=== PATIENT | male | born 1970 | race Caucasian/White ===

== ENCOUNTER 2018-03-18 13:48 | Inpatient (IN) | payer MEDICARE, MEDICAID ==
[~2018-03-18] VITALS: Ht 147.3 cm; Wt 50.8 kg
[2018-03-18] MEDS ORDERED: PHOSPHOROUS 25250 MG PO (15:08)
[2018-03-18] MEDS ORDERED: METOPROLOL SUCC25 M1 PO (15:08)
[2018-03-18] MEDS ORDERED: NOVOLOG 100U100 U/ML SQ (15:10)
[2018-03-18] MEDS ORDERED: CELLCEPT500 MG PO (15:11)
[2018-03-18] MEDS ORDERED: CYCLOSPORINE25 MG (15:11)
[2018-03-18] MEDS ORDERED: VITAMIN D5000 I1 PO (15:12)
[2018-03-18] MEDS ORDERED: PRILOSEC 20MG20 MG PO (15:12)
[2018-03-18] MEDS ORDERED: PRINIVIL20 M1 PO (15:32)
[2018-03-18] MEDS ORDERED: RESTORIL15 MG PO (15:32)
[2018-03-18] MEDS ORDERED: RYTARY1 CE2 PO (15:33)
[2018-03-18] MEDS ORDERED: SINEMET CR 25 M1 TER PO (15:34)
[2018-03-18] MEDS ORDERED: REQUIP 1MG T1 MG/TAB (15:35)
[2018-03-18] MEDS ORDERED: ZOLOFT25 M1 PO (15:36)
[2018-03-18] MEDS ORDERED: LEVOXYL25 MCG PO (15:36)
[2018-03-18] MEDS ORDERED: ARICEPT5 M1 PO (15:36)
[2018-03-18] MEDS ORDERED: TRULICITY0.75 MG/0. SC (15:37)
[2018-03-18] MEDS ORDERED: BASAGLAR K100 UNIT/1 SQ (15:37)
--- NOTE | 2018-03-18 16:00 | NUR ---
PT ADMITTED TO ROOM #203 AT THIS TIME SWINGBED STATUS, PT'S "FRIEND" COLBY IS PROVIDING TRANSPORTATION AND STATES SHE IS THE ONLY "HELP" OR PERSON TO NOTIFY ABOUT [facility] IN THIS AREA THAT CAN ASSIST WITH ANY DECISIONS IF NEEDED [facility]URING [facility], PT IS ALERT AND ORIENTED BUT SOMEWHAT SLOW TO RESPOND AND MINIMAL STUTTERING WITH SPEECH, PT REPORTS HE CAN WALK "VERY SHORT DISTANCES" WITH A WHEELED WALKER AT HOME BUT USES HIS ELECTRIC WHEELCHAIR MOST OF THE TIME, PT STATES HE IS LIVING ALONE BUT IS VERY TIRED, HE STATES "I WILL TRY TO MAKE A MEAL, BUT I HAVE TO LAY DOWN AND TAKE A NAP AFTER I START COOKING, SO I WILL LAY ON THE FLOOR AND SLEEP FOR A QUICK NAP THEN WHEN I WAKE UP EVERYTHING IS BURNING AND BURNED UP," YURI ALBERTO AT BEDSIDE THROUGHOUT THIS CONVERSATION, NURSE TO NURSE REPORT PROVIDED FROM [facility] ICU REPORTED THAT PT HAD BEEN NOTED TO HAVE DOG FECES ALL OVER HOUSE WHEN HE WAS BROUGHT INTO THE [facility] ER, PT DOES NOT MENTION THIS AT THIS TIME, PT STATES AT HOME HE MAY WALK "A VERY SHORT DISTANCE" BUT FOR YEARS HE HAS RELIED MORE ON HIS POWER CHAIR, PT TRANSFERRED WELL WITH 1:1 ASSIST USING A GAIT BELT, ABLE TO AMBULATE TO AND FROM BATHROOM WITH 4WW AND GAIT BELT, WEAKNESS NOTED WITH GAIT, PT ALSO STATES DURING COMPLEX ASSESSMENT THAT "YEARS AGO AT [facility] I SIGNED A DO NOT RESUSCITATE ORDER," AND VERIFIES AGAIN THAT HE DOES NOT WANT LIFESAVING MEASURES IF HIS HEART WOULD STOP, WHEN ASKED BY PROVIDER IF HE FEELS IT MAY BE TIME FOR ASSISTED LIVING OR MORE HELP AT HOME PT STATES HE IS "NOT READY FOR ASSISTED LIVING, BUT WOULD AGREE TO SOME HOME HEALTH AFTER DISCHARGE," NURSE TO NURSE REPORT ALSO PROVIDED THE INFORMATION THAT PT HAD MENDEZ REMOVED TODAY AND HAD NOT VOIDED YET UPON DC, WE WILL MONITOR FOR PT'S FIRST VOID AND TAKE ACTION IF NECESSARY
[2018-03-18 17:24] VITALS: BP 119/78
--- NOTE | 2018-03-18 18:16 | NUR ---
PT HAS NOW VOIDED X2 WITH NO DIFFICULTIES SINCE ARRIVAL AND POST MENDEZ BEING REMOVED THIS AM, PT HAS ALSO HAD A BM SINCE ARRIVAL, DENIES NEEDS AT THIS TIME, USING CALL LIGHT APPROPRIATELY, NO BEHAVIORAL ISSUES ( REPORTED IN NURSE TO NURSE REPORT) NOTED UPON THIS ADMISSION SO FAR, PT WAS ABLE TO TAKE PM MEDS WHOLE WITH NO DIFFICULTIES
[2018-03-18 18:44] VITALS: BP 134/92
--- NOTE | 2018-03-18 19:42 | NUR ---
1929 Bedside shift report received from Nelli Mcdonald RN. Pt awake and a/o x 3, sitting in recliner watching TV. Chair alarm set and call light with in reach of pt. 1939 Ambulated to the bathroom myself at pt's sided. Used walker, gait belt and girp socks on. Gait steady.
--- NOTE | 2018-03-18 22:10 | NUR ---
2119 Accu-chek done. Blood sugar 247. 2205 given schedule insulin. Given half of turkey sandwich with cheese.
--- NOTE | 2018-03-19 06:00 | NUR ---
Q hourly checks done. Has been resting in bed with eyes closed and even respirations. Pt has reposition self. Bed alarm set and call light with in reach of pt. At 0542 Pt difficult to wake up. 0545 Accu-chek done. Blood sugar 70. Pt given 2 najma crackers.
[2018-03-19 06:26] VITALS: BP 140/87
--- NOTE | 2018-03-19 07:15 | NUR ---
Bedside shift report given to Amparo Grant RN
--- NOTE | 2018-03-19 07:47 | NUR ---
REPORT RECEIVED FROM ERIC PALOMINO. PATIENT RESTING IN BED AND ALERT. VERBALIZES UNDERSTANDING THAT IT IS SHIFT CHANGE. PATIENT REPORTS HE IS PAIN FREE AND DOING WELL, WOULD LIKE TO STAY IN BED AT THIS TIME. NO QUESTIONS OR CONCERNS NOTED FROM PATIENT.
[2018-03-19 18:47] VITALS: BP 125/81
--- NOTE | 2018-03-19 19:15 | NUR ---
Bedside shift report received from Amparo Grant RN. Pt awake and a/o x 3. Sitting in recliner. Denies having any needs or concerns at this time. Denies pain.
--- NOTE | 2018-03-19 19:32 | NUR ---
report given to ERIC Romero. patient sitting up in chair reading a book. Patient has had a good day with little concerns. Patient denies needs at this time.
--- NOTE | 2018-03-19 22:00 | NUR ---
Ambulated to the bathroom, used walker, gait belt and lead android developer socks on. Pt brushed his own teeth and put his hearing aids in denture cups. Ambulated to bed, gait steady. Denied having any needs or pain.
--- NOTE | 2018-03-20 04:22 | NUR ---
Q hourly checks done. Call light with in reach of pt, bed alarm set. Pt has been resting in bed with eyes close and even respirations. Pt has repositioned self and used call light appropriately when needing assistances or needing to get out of bed. At 0400 Pt requesting something to eat. Stating "I haven't ate in 6 hours." Accu-chek done. Blood sugar 69. Pt given turkey sandwich.
[2018-03-20 06:30] VITALS: BP 152/89
--- NOTE | 2018-03-20 07:44 | NUR ---
Bedside shift report given Sangeetha Ochoa RN
--- NOTE | 2018-03-20 17:30 | NUR ---
Pt here for swing bed due to stay for unstable blood sugars and rehab. Pt is able to make needs know but can be forgetful at times. Pt ocassionaly will use call light for help but has been observed walking in room after personal alarms sounds. Pt is hard of hearing and wears bilateral hearing aids. Pt a,bulates with a walker and a steady gait. PT required 2 units of novolog at breakfast and 8 units at supper. Pt is concerned he is gettign the wrong insulin, he states that the insulin he is reciving causes him to swell. Pt belives he will loss a kidney if he continues to take the insulin. Pt states he takes Basilar in the moring at home and no other insulin. Explained to pt that at this point in time we are giving him what he was reciving at [address]. Pt states well they have my meds wrong to then. Explained to pt that we would clarify this situation when the doctor office is opened on Wednesday.
[2018-03-20 18:52] VITALS: BP 126/72
--- NOTE | 2018-03-20 19:30 | NUR ---
Bedside shift report received from Sangeetha Ochoa RN. Pt's family at bedside. Pt's daughter requested medication to help her mother sleep. Daughter states pt told her she has not been sleeping at night. Daughter reported this to Sangeetha Ochoa RN and myself. Sangeetha reports that pt has been sleeping today. Dr Grimes notified, no new orders at this time.
--- NOTE | 2018-03-20 19:30 | NUR ---
Bedside shift report received from Sangeetha Ochoa RN. Pt awake and a/o x 3. Sitting in recliner. Chair alarm set and call light with in reach of pt. Pt watching TV and working on puzzle.
--- NOTE | 2018-03-20 19:40 | NUR ---
Visited with pt about scheduled medications. Pt had concerns regarding the medications compaired to the medications he takes at home. Pt requesting a review of medication.
--- NOTE | 2018-03-20 21:55 | NUR ---
2144 C/o of pain in feet. Requested tylenol. 2150 Dr Grimes notified, order received and tylenol given.
--- NOTE | 2018-03-21 05:36 | NUR ---
0510 resting in bed, eyes close with even respirations. Bed alarm set and call light with in reach of pt. Opens eyes when spoken too. Denies having any pain or needs. Requesting something to eat. Accu-chek 76. Pt given a ham sandwich. 0520 Ambulated to the bathroom, used walker, gait belt and piano case and bench assembler socks on. Gait steady. Voided 400mls.
[2018-03-21 06:01] VITALS: BP 140/94
--- NOTE | 2018-03-21 07:15 | NUR ---
Bedside shift report given to Staci Colón RN
--- NOTE | 2018-03-21 08:15 | NUR ---
Assist pt up to BR. Pt uses rolator walker. Ambulates well. Pt reports that he is feeling much stronger and able to get around better. Pt denies pain and denies needs at this time.
--- NOTE | 2018-03-21 18:31 | NUR ---
Pt informs case assembler that at home, he takes Trulicity 0.75mg q Wednesday and Basoglar - 29u q AM. Also requests saltines for afternoon snacks and PB/crackers or applesauce for HS snack.
[2018-03-21 19:16] VITALS: BP 124/74
--- NOTE | 2018-03-21 20:00 | NUR ---
Bedside shift report received from Staci REYES. Sitting up in recliner, working on [employer]. A/O x4. Denies pain. Denies nausea, states "I just ate some crackers, if I don't I get nausea with some of my medicine. Assessment completed. Denies wants or needs at this time. Medication list reviewed at this time.
--- NOTE | 2018-03-21 21:10 | NUR ---
Scheduled HS medications taken whole without difficulty. 4 Units of Humalog given in L posterior arm for blood sugar of 250. Nelly Levemier 18 Units given at this time also in L posterior arm. Denies further wants or needs at this time.
--- NOTE | 2018-03-22 01:51 | NUR ---
Rests quietly with eyes closed. No signs of pain or distress. Bed alarm on. Call light in reach.
--- NOTE | 2018-03-22 04:59 | NUR ---
Requests snack and Tylenol for pain to feet. "feel like they are on fire". States has had this since 2006 after swelling due to kidney failure. Gave snack of PB and najma crackers and milk. Blood sugar 126 prior to snack.
[2018-03-22 06:24] VITALS: BP 127/85
--- NOTE | 2018-03-22 07:37 | NUR ---
Report to Ashley REYES.
--- NOTE | 2018-03-22 08:01 | NUR ---
Dread Howell APRN at bedside.
[2018-03-22 18:00] VITALS: BP 122/77
--- NOTE | 2018-03-22 21:00 | NUR ---
Bedside shift report received from Ashley RN. Patient sitting up in recliner. A/O x4. Denies pain. Assessment completed. Medication taken whole without difficulty. Blood [id number]. Received 8 Units of SS insulin, along with scheduled Basagar 18 Units via PEN. HS snack taken. Had sour brought in by a friend and eating PB crackers and an orange.
--- NOTE | 2018-03-23 04:07 | NUR ---
Rests with eyes closed. No signs of pain or distress. Bed alarm on. Call light in reach.
--- NOTE | 2018-03-23 05:00 | NUR ---
Patient calls and requests a snack. "I woke up and realized that I had not eaten in 8 hours. Accu check performed and 165. Explained to patient that this is rather high and that eating may cause him to have to take some SS insulin in the AM. Insists on having something in his stomach. Agreeable to some cheese and sugar free applesauce at this time to tide him over until Bkfst.
[2018-03-23 06:21] VITALS: BP 117/73
--- NOTE | 2018-03-23 07:00 | NUR ---
Refuses to take Requip when ordered. States he wants to take it with his breakfast. "I have to have food on my stomach and the cheese and applesauce is not enough food". Report to Ashley REYES.
--- NOTE | 2018-03-23 09:38 | NUR ---
Pt given AM meds. Is instructed on administering own Trulicity in abdomen and is agreeable to trying it in stomach but reports that he was taught by doctor to give in upper leg. Pt administers own Trulicity.
[2018-03-23 18:35] VITALS: BP 106/68
--- NOTE | 2018-03-23 21:30 | NUR ---
PATIENT SITTING UP IN RECLINER. SHIFT ASSESSMENT COMPLETE. PATIENT ALERT AND ORIENTED X4. DENIES ANY PAIN OR DISCOMFORTS AT THIS TIME. REQUESTS PRN TYLENOL WITH REST OF SCHEDULED MEDICATIONS. REPORTS TYLENOL IS FOR FEET. REPORTS HAVING "BURNING" IN FEET THAT TYLENOL HELPS WITH. STATES "IT'S NOT A PAIN THE TYLENOL JUST HELPS IT" DENIES SHORTNESS OF BREATH OR DIFFICULTIES BREATHING. PATIENT'S CALL LIGHT WITHIN REACH. CHAIR ALARM ON.
--- NOTE | 2018-03-23 22:00 | NUR ---
REPORT RECEIVED FROM Nikhil VAZ RN.
[2018-03-24 06:18] VITALS: BP 136/89
[2018-03-24 19:02] VITALS: BP 139/86
[2018-03-25 06:35] VITALS: BP 150/97
--- NOTE | 2018-03-25 17:49 | NUR ---
Pt chooses [facility] and Janie is faxed clinicals. Pt is also set up w/ [employer] w/ request for headphones that cover ears as pt has a hearing problem as well as head and hand tremors that make it difficult for him to read. [place] PATENTS EXAMINER is notified to help pt w/ this activity which he has tried in facility and is looking forward to trying it at home. [place] is also asked to look into finding pt private pay home assistance that does not cost $144/month as [facility] has offered which is unaffordable to pt. Pt has RN Clinical Trials Manager through [facility] Dr Annette Young, Ute Perez @ [phone] who will be notified of pt's discharge plan as will [facility] NIVIA Ortiz [phone] x [phone]. Pt will also be notified of how to contact [facility] transportation for his transportation needs and these above contacts along w/ Janie RENEEA will be asked to f/u on any of his home needs after his discharge.
[2018-03-25 18:39] VITALS: BP 129/87
--- NOTE | 2018-03-26 | NUR ---
Bedside shift report received from Peg Osborne RN. Pt resting in bed, eyes closed and even respirations. Bed alarm set and call light with in reach of pt.
--- NOTE | 2018-03-26 04:25 | NUR ---
Has been resting in bed, eyes closed with even respirations. Bed alarm set and call light with in reach of pt. Pt used call light at 0412, ambulated to the bathroom with one assist. Used walker. Gait steady. Denies pain. Given milk per pt request.
[2018-03-26 05:45] VITALS: BP 139/90
--- NOTE | 2018-03-26 06:05 | NUR ---
REPORT RECEIVED FROM ERIC PALOMINO
--- NOTE | 2018-03-26 06:13 | NUR ---
Q hourly checks done. Call light with in reach of pt. Report given to Alyse Grant RN
--- NOTE | 2018-03-26 06:18 | NUR ---
Bedside report given
--- NOTE | 2018-03-26 07:20 | NUR ---
REPORT GIVEN TO ERIC DUMONT
[2018-03-26 11:47] LABS: HEMATOCRIT 38.8 % (42.0-52.0); HEMOGLOBIN 12.2 g/dL (13.5-18.0); MEAN CELL VOLUME 95 fl (78-100); MEAN CORPUSCULAR HEMOGLOBIN 30 pg (27-31); MEAN CORPUSCULAR HGB CONC 31 g/dL (33-37); MEAN PLATELET VOLUME 11.1 fl (7.4-10.4); PLATELET COUNT 305 K/mm3 (130-400); RED BLOOD COUNT 4.08 M/mm3 (4.20-5.60); RED CELL DISTRIBUTION WIDTH 13.2 % (11.5-14.5); WHITE BLOOD COUNT 9.1 K/mm3 (4.8-10.8)
[2018-03-26 12:33] LABS: LYMPHOCYTE 12 % (20-51); MONOCYTE 13 % (3-10); NEUTROPHILS 73 % (42-75)
[2018-03-26 13:36] LABS: ALBUMIN 4.1 g/dL (3.5-5.0); CALCIUM 9.5 mg/dL (8.4-10.2); POTASSIUM 4.2 mmol/L (3.6-5.0); TOTAL BILIRUBIN 0.5 mg/dL (0.2-1.3); TOTAL PROTEIN 7.1 g/dL (6.3-8.2)
[2018-03-26 18:58] VITALS: BP 115/79
--- NOTE | 2018-03-26 20:07 | NUR ---
PT REQUEST TYLENOL FOR NAUSEA
--- NOTE | 2018-03-27 05:24 | NUR ---
Pt swing bed for diabetic monitoring and teaching. PT is alert and able to make needs know. Unwilling to give own insulin injection due to the fact he dose not like how long the needles that are used. Pt states he doesn't like to poke himself. Pt request Tylenol x 2 this shift. No other complanits from pt. Pt call s for assist to the bathroom when it is needed. [facility]
[2018-03-27 06:32] VITALS: BP 133/76
--- NOTE | 2018-03-27 07:10 | NUR ---
BEDSIDE REPORT GIVEN TO Adele DAO RN
--- NOTE | 2018-03-27 09:05 | NUR ---
Report from Olivia Ochoa RN. Pt resting in chair after completing breakfast. AM meds given without issue. PRN tylenol given per pt request for nausea. Pt states he plans to discharge Wednesday. Chair locked, call light within reach, alarm armed. No further needs at this time.
--- NOTE | 2018-03-27 17:30 | NUR ---
this nurse in patient's room to administer sliding scale novolog. this nurse educated patient on how to give insulin administration. asked patient to try to administer own insulin. patient given step by step instructions. patient hesitant, instructed patient that this nurse would give this dose but patient needed to watch. when going to give poke with needle patient closes eyes and turns head. told patient that he needed to watch administration so that way he could do it once home. patient views insulin administration. verbalizes understanding.
[2018-03-27 18:34] VITALS: BP 120/84
--- NOTE | 2018-03-27 19:00 | NUR ---
BEDSIDE SHIFT REPORT RECIEVED FROM ERIC DUMONT. PATIENT SITTING UP IN CHAIR, CALL LIGHT WITHIN REACH AND CHAIR ALARM ON.
--- NOTE | 2018-03-27 21:06 | NUR ---
PATIENT SITTING UP IN CHAIR. SHIFT ASSESSMENT COMPLETED AT THIS TIME. PATIENT A/O X4, DENIES PAIN. LUNGS CTA, DENIES COUGH OR SHORTNESS OF BREATH. PATIENT REPORTS NAUSEA AND REQUESTS TYLENOL. +1 PITTING EDEMA NOTED TO BLE. HS MEDICATIONS GIVEN. PATIENT WITHOUT FURTHER NEEDS, WILL CONTINUE TO MONITOR. CALL LIGHT WITHIN REACH AND CHAIR ALARM ON.
[2018-03-28 06:21] VITALS: BP 147/88
--- NOTE | 2018-03-28 07:20 | NUR ---
bedside report received from scar peralta rn
--- NOTE | 2018-03-28 12:30 | NUR ---
patient's friend young brought in home insulin and accu check supplies. patient has basaglar pen, levemire pen, pen needles, alcohol wipes, an accu check machine with no test strips, and 2 lancet machines with no needles. per kierra garnett compensation analyst do not give patient sliding scale insulin today to see how patient does without novolog.
[2018-03-28 18:29] VITALS: BP 137/87
--- NOTE | 2018-03-28 19:00 | NUR ---
Bedside shift report received from Sherita REYES. Up in chair. Noted to be eating chocolate chip cookie and has several package snacks in room beside chair. Patient has had educated by PCC, nurses and Dietitian on several occasions and continues to be non-complient with his diet and asking for snacks on several occasions and gets angry if not provided. Denies pain or needs at this time.
--- NOTE | 2018-03-28 21:00 | NUR ---
Assessment completed. Scheduled HS medications taken whole without difficulty. Accu-check 342. Novolog 8 Units administerd SQ along with HS scheduled insulin 21 units of Basaglar which was increased today. States "I will want a snack later. Denies wants or needs. Chair alarm on. Call light in reach.
--- NOTE | 2018-03-29 02:21 | NUR ---
Rings call light. Requests and given Tylenol for a headache. Denies further wants or needs.
[2018-03-29 06:04] VITALS: BP 135/95
--- NOTE | 2018-03-29 07:29 | NUR ---
Report to Ashley REYES
--- NOTE | 2018-03-29 09:04 | NUR ---
Dread GILL APRN AT BEDSIDE.
[2018-03-29] MEDS ORDERED: ARICEPT5 M1 PO (10:10)
[2018-03-29] MEDS ORDERED: METOPROLOL SUCC25 M1 PO (10:11)
[2018-03-29] MEDS ORDERED: ZOLOFT25 M1 PO (10:11)
[2018-03-29] MEDS ORDERED: PRINIVIL20 M1 PO (10:11)
[2018-03-29] MEDS ORDERED: RESTORIL15 MG PO (10:12)
[2018-03-29] MEDS ORDERED: SINEMET CR 25 M1 TER PO (10:12)
[2018-03-29] MEDS ORDERED: REQUIP 1MG T1 MG/TAB PO (10:13)
[2018-03-29] MEDS ORDERED: PRILOSEC 20MG20 MG PO (10:13)
[2018-03-29] MEDS ORDERED: PHOSPHOROUS 25250 MG PO (10:13)
[2018-03-29] MEDS ORDERED: CYCLOSPORINE25 MG PO (10:14)
[2018-03-29] MEDS ORDERED: VITAMIN D5000 I1 PO (10:14)
[2018-03-29] MEDS ORDERED: LEVOXYL25 MCG PO (10:14)
[2018-03-29] MEDS ORDERED: CELLCEPT500 MG PO (10:15)
[2018-03-29] MEDS ORDERED: TEST STRIPS1 EACH MC (10:22)
--- NOTE | 2018-03-29 10:58 | NUR ---
Patient alert and oriented. Denies pain, dizziness, or shortness of breath. Friend [place] at bedside. Patient discharged to home. Printed and verbal discharge instructions provided. Chart made by Dread Howell APRN of times medications are due and when to check blood sugars provided. Patient verbalizes understanding. Prescriptions sent to [facility]. Patient verbalizes understanding of discharge instructions and denies needs. All questions answered. Patient out of facility via wheelchair to [facility] without incident.
== END 2018-03-29 10:58 | disposition home health service (06) | DRG 947 ==
LOC: MED/SURG 13:48
PROVIDERS: ADMIT Nurse Practitioner Primary Care
DX: R53.81 Other malaise (principal); E11.00 Type 2 diabetes mellitus with hyperosmolarity without nonketotic hyperglycemic-hyperosmolar coma (NKHHC); Z94.0 Kidney transplant status; Z66 Do not resuscitate; Z79.4 Long term (current) use of insulin; G20 Parkinson's disease; F02.80 Dementia in other diseases classified elsewhere, unspecified severity, without behavioral disturbance, psychotic disturbance, mood disturbance, and anxiety; I10 Essential (primary) hypertension; Z91.14 Patient's other noncompliance with medication regimen
CPT/HCPCS: J1650; J1815; J7515; J7517